=== PATIENT | female | born 1990 | race Caucasian/White ===

== ENCOUNTER 2016-12-03 08:39 | Emergency (ER) | payer OTHER ==
[~2016-12-03] VITALS: Ht 175.3 cm; Wt 68.0 kg
[~2016-12-03 08:39] MED LIST: FIORICET TABLE1 EACH PO; IBUPROFEN400 MG PO; KEFLEX 500MG.500 MG PO; NOMEDS XX; PERCOCET 5/3251 EACH PO; PHENERGAN 25MG.25 MG PR; PRENATAL PLUS1 TA1 PO
--- NOTE | 2016-12-03 08:52 | Emergency Room Report ---
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 N Clinical Suspician of Infection? N Mental Status: 1 - Regular (Normal Baseline) Sepsis Risk:Low Sepsis Risk Have you (or family members/close friends) recently traveled outside the [place]? N If Yes, where/when: Have you had exposure to infectious disease within the past month? TB? Other? Specify: Comment The patient dropped a tool on her LEFT hand at work yesterday, it struck in the region of her second metacarpal head. She has a tiny abrasion but says that today the pain is a lot worse than it looks and she is having trouble moving her hand. No numbness. She says she is currently working for a [employer] service, request a note for missing work today, does not plan on going into work today. ALLERGIES Coded Allergies: Penicillins (12/03/16) Home Medications Reported Medications No Known Home Medications History Medical History General CAD? No Angina: No [place]: No Hypertension? No Hyperlipidemia? No CHF? No DVT? No PE? No COPD? No Asthma? Yes Anemia? No GERD? No Gastric ulcers? No GI Bleed? No Hernia? No Thyroid Problems? No Hypothyroidism? No CVA? No Seizures? No Diabetes? No Renal Insuffiency? No End Stage Renal Disease? No UTI? No Stones? No BPH? No GB Disease: No Nephritic Syndrome? No Asplenia? No Hepatitis? No Sickle Cell Disease? No Arthritis? No Migraines? No Cataracts? No Glaucoma? No MRSA? No HIV? No TB? No Anxiety? No Depression? No Cancer? 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 Cardiovascular normal peripheral pulses Extremities 2 mm abrasion in the region of the second metacarpal head dorsum of LEFT hand. Minimal edema. Reduced range of motion due to pain. No deformity. Neurovascular intact. Neurologic alert, no motor/sensory deficits Mental status normal mood/affect Skin normal color Medical Decision Making LABS/Meds/Orders Pt receiving controlled substance in ED? No Results/Orders Orders Procedure Date/time Status STABILIZE JOINT 12/03 903 Active HAND-LT-3 VIEWS 12/03 848 Active URINE 12/03 848 Complete XRAY/CT/US XRAY/CT/US XRAY hand Comment Interpreted by Rodolfo Ricketts MD. Negative for fracture, dislocation, or foreign body. Departure Departure Disposition DC Home or Self Care(routine) Clinical Impression Primary Impression: Contusion of left hand Qualifiers: Encounter type: initial encounter Qualified Code: S60.222A - Contusion of left hand, initial encounter Condition STABLE Patient Instructions DI for Contusion Additional Instructions Regan wrap for 3 days. Ice and elevate for pain and swelling. Ibuprofen for pain. Off work today, 12/03/16. RIGHT hand work only 12/04/16 and 12/05/16.. Prescriptions Current Visit Scripts No Known Home Medications ED Critical Care Critical Care No at 0906
--- NOTE | 2016-12-03 08:52 | Emergency Room Report ---
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 N Clinical Suspician of Infection? N Mental Status: 1 - Regular (Normal Baseline) Sepsis Risk:Low Sepsis Risk Have you (or family members/close friends) recently traveled outside the [place]? N If Yes, where/when: Have you had exposure to infectious disease within the past month? TB? Other? Specify: Comment The patient dropped a tool on her LEFT hand at work yesterday, it struck in the region of her second metacarpal head. She has a tiny abrasion but says that today the pain is a lot worse than it looks and she is having trouble moving her hand. No numbness. She says she is currently working for a [employer] service, request a note for missing work today, does not plan on going into work today. ALLERGIES Coded Allergies: Penicillins (12/03/16) Home Medications Reported Medications No Known Home Medications History Medical History General CAD? No Angina: No [place]: No Hypertension? No Hyperlipidemia? No CHF? No DVT? No PE? No COPD? No Asthma? Yes Anemia? No GERD? No Gastric ulcers? No GI Bleed? No Hernia? No Thyroid Problems? No Hypothyroidism? No CVA? No Seizures? No Diabetes? No Renal Insuffiency? No End Stage Renal Disease? No UTI? No Stones? No BPH? No GB Disease: No Nephritic Syndrome? No Asplenia? No Hepatitis? No Sickle Cell Disease? No Arthritis? No Migraines? No Cataracts? No Glaucoma? No MRSA? No HIV? No TB? No Anxiety? No Depression? No Cancer? 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 Cardiovascular normal peripheral pulses Extremities 2 mm abrasion in the region of the second metacarpal head dorsum of LEFT hand. Minimal edema. Reduced range of motion due to pain. No deformity. Neurovascular intact. Neurologic alert, no motor/sensory deficits Mental status normal mood/affect Skin normal color Medical Decision Making LABS/Meds/Orders Pt receiving controlled substance in ED? No Results/Orders Orders Procedure Date/time Status STABILIZE JOINT 12/03 903 Active HAND-LT-3 VIEWS 12/03 848 Active URINE 12/03 848 Complete XRAY/CT/US XRAY/CT/US XRAY hand Comment Interpreted by Rodolfo Ricketts MD. Negative for fracture, dislocation, or foreign body. Departure Departure Disposition DC Home or Self Care(routine) Clinical Impression Primary Impression: Contusion of left hand Qualifiers: Encounter type: initial encounter Qualified Code: S60.222A - Contusion of left hand, initial encounter Condition STABLE Patient Instructions DI for Contusion Additional Instructions Regan wrap for 3 days. Ice and elevate for pain and swelling. Ibuprofen for pain. Off work today, 12/03/16. RIGHT hand work only 12/04/16 and 12/05/16.. Prescriptions Current Visit Scripts No Known Home Medications ED Critical Care Critical Care No at 0906
[2016-12-03 09:24] VITALS: BP 130/98
--- NOTE | 2016-12-03 09:28 | RADIOLOGY REPORT PS360 ---
HAND-LT-3 VIEWS HISTORY: Posttraumatic pain DROPPED TOOL GUN ON HAND COMPARISON: None FINDINGS: No fracture or dislocation. No lytic or blastic change. There is normal mineralization. The joint spaces are well-preserved. No significant degenerative/arthritic changes. No erosive changes evident. IMPRESSION: Negative, no acute finding
== END 2016-12-03 09:25 | disposition home or self-care (01) ==
LOC: ER 08:39
DX: S60.222A Contusion of left hand, initial encounter (principal); W22.8XXA Striking against or struck by other objects, initial encounter; Y92.63 Factory as the place of occurrence of the external cause; Y99.0 Civilian activity done for income or pay; Z72.0 Tobacco use

== ENCOUNTER 2017-03-27 19:08 | Emergency (ER) | payer SELFPAY ==
[~2017-03-27] VITALS: Ht 175.3 cm; Wt 70.3 kg
[2017-03-27 19:25] LABS: URINE BILIRUBIN - DIPSTICK NEGATIVE (NEG); URINE BLOOD NEGATIVE (NEG)
[2017-03-27] MEDS ORDERED: DIFLUCAN150 MG PO (19:58)
[2017-03-27] MEDS ORDERED: FLAGYL500 M1 PO (19:58)
--- NOTE | 2017-03-27 20:04 | Urgent Treatment Center Report ---
History of Present Issue Date/Time Seen by Provider 03/27/171925 Visit Reason Pt arrived:Walked Presenting Problem:PT STATES VAGINAL DISCHARGE FOR PAST THREE TO FOUR DAYS. DENIES ITCHING OR BURNING. DENIES ANY USE OF NEW/DIFFERENT CONDOMS OR LUBRICANT DURING INTERCOURSE Location if Accident: Onset of symptoms date/time:/ or onset unknown for:MEDICAL HX UNKNOWN Have you (or family members/close friends) recently traveled outside the [place]? N If Yes, where/when: Have you had exposure to infectious disease within the past month? TB? Other? Specify: Patient states that she recently had unprotected sex about 3-4 days States that she has noticed that she has a excessive vaginal discharge that is whitish yellow in color. States that she thinks she may have been exposed to an STD. States that she also noted a strong odor from the discharge at times and some irritation around vaginal opening. ALLERGIES Coded Allergies: Penicillins (12/03/16) Home Medications Reported Medications No Known Home Medications History Medical History General CAD? No Angina: No [place]: No Hypertension? No Hyperlipidemia? No CHF? No DVT? No PE? No COPD? No Asthma? Yes Anemia? No GERD? No Gastric ulcers? No GI Bleed? No Hernia? No Thyroid Problems? No Hypothyroidism? No CVA? No Seizures? No Diabetes? No Renal Insuffiency? No UTI? No Stones? No BPH? No GB Disease: No Nephritic Syndrome? No Asplenia? No Hepatitis? No Sickle Cell Disease? No Arthritis? No Migraines? No Cataracts? No Glaucoma? No MRSA? No HIV? No TB? No Anxiety? No Depression? No Cancer? 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 States that afterwards she began to have discharge from her vagina that was whitish yellow in color and irritation around vaginal opening with strong odor from discharge at times. States that male at high risk to have STD so she came in to get treated to be safe Physical Exam Vital Signs Vital Signs Date Time Temp Pulse Resp B/P Pulse O2 O2 Flow FiO2 Ox Delivery Rate 03/27 1914 98.8 93 18 130/80 96 General Appearance normal appearance, WD/WN, no apparent distress Respiratory Status Yes: trachea midline, chest symmetrical, non tender chest. No: respiratory distress. 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 Also patient complains of strong odor from discharge described as that seen with Bacterial Vaginosis. Medical Decision Making LABS/Meds/Orders Pt receiving controlled substance in ED? No Results/Orders Laboratory Tests 03/27/171910: Urine Color YELLOW, Urine Appearance Clear, Urine pH 7.0, Ur Specific [place] 1.015, Urine Protein NEGATIVE, Urine Ketones NEGATIVE, Urine Blood NEGATIVE, Urine Nitrate NEGATIVE, Urine Bilirubin NEGATIVE, Urine Urobilinogen 1.0, Ur Leukocyte Esterase NEGATIVE, Urine Glucose NEGATIVE Current Medication Orders Sig/Maximo Start time Last Medication Dose Route Stop Time Status Admin Ceftriaxone Sodium 0 .STK-MED ONE 03/27 1947 DCr .ROUTE Lidocaine HCl 0 .STK-MED ONE 03/27 1947 DC IJ Azithromycin 0 .STK-MED ONE 03/27 1946 DC PO Azithromycin 1,000 MG ONCE ONE 03/27 1945 DC / PO 03/27 Ceftriaxone Sodium 250 MG ONCE ONE 03/27 1945 DCr 03/27 IM 03/27 Lidocaine HCl 0.9 ML ONCE ONE 03/27 1945 DC 03/27 IM 03/27 Orders Procedure Date/time Status [facility] URINE DIPSTICK 03/27 1911 Complete Progress [facility] Progress Notes Date 03/27/17 Time 1951 Comment Patient declined pelvic exam and STD testing and instead wanted to receive medication treatment for Chlamydia and Gonorrhea with Rocephin and Azithromycin due to recent high risk exposure. Departure Departure Time of Disposition 1952 Disposition DC Home or Self Care(routine) Clinical Impression Primary Impression: BV (bacterial vaginosis) Condition STABLE Referrals Joey LUND,Albert Toussaint MD,[place]ipak El Patient Instructions Bacterial Vaginosis, DI for Bacterial Vaginosis, DI for Vaginal Yeast Infection Additional Instructions Keep area clean and dry No sexual activity for at least one week or cleared by OBGYN Practice safe sex Wear cotton underwear and refrain from douching, bubble baths, tampons, or sexual encounter until all medication completed FOllow up with OBGYN or family doctor if symptoms do not improve or persist Return if needed Discharge Counseling Counseled pt/family regarding diagnosis, medications/RX, home care, follow up needs Prescriptions Current Visit Scripts Metronidazole (Flagyl) 500 MG PO BID #14 TAB Fluconazole (Diflucan 150MG) 150 MG PO ONCE #1 TAB at 2004
--- NOTE | 2017-03-27 20:04 | Urgent Treatment Center Report ---
History of Present Issue Date/Time Seen by Provider 03/27/171925 Visit Reason Pt arrived:Walked Presenting Problem:PT STATES VAGINAL DISCHARGE FOR PAST THREE TO FOUR DAYS. DENIES ITCHING OR BURNING. DENIES ANY USE OF NEW/DIFFERENT CONDOMS OR LUBRICANT DURING INTERCOURSE Location if Accident: Onset of symptoms date/time:/ or onset unknown for:MEDICAL HX UNKNOWN Have you (or family members/close friends) recently traveled outside the [place]? N If Yes, where/when: Have you had exposure to infectious disease within the past month? TB? Other? Specify: Patient states that she recently had unprotected sex about 3-4 days States that she has noticed that she has a excessive vaginal discharge that is whitish yellow in color. States that she thinks she may have been exposed to an STD. States that she also noted a strong odor from the discharge at times and some irritation around vaginal opening. ALLERGIES Coded Allergies: Penicillins (12/03/16) Home Medications Reported Medications No Known Home Medications History Medical History General CAD? No Angina: No [place]: No Hypertension? No Hyperlipidemia? No CHF? No DVT? No PE? No COPD? No Asthma? Yes Anemia? No GERD? No Gastric ulcers? No GI Bleed? No Hernia? No Thyroid Problems? No Hypothyroidism? No CVA? No Seizures? No Diabetes? No Renal Insuffiency? No UTI? No Stones? No BPH? No GB Disease: No Nephritic Syndrome? No Asplenia? No Hepatitis? No Sickle Cell Disease? No Arthritis? No Migraines? No Cataracts? No Glaucoma? No MRSA? No HIV? No TB? No Anxiety? No Depression? No Cancer? 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 States that afterwards she began to have discharge from her vagina that was whitish yellow in color and irritation around vaginal opening with strong odor from discharge at times. States that male at high risk to have STD so she came in to get treated to be safe Physical Exam Vital Signs Vital Signs Date Time Temp Pulse Resp B/P Pulse O2 O2 Flow FiO2 Ox Delivery Rate 03/27 1914 98.8 93 18 130/80 96 General Appearance normal appearance, WD/WN, no apparent distress Respiratory Status Yes: trachea midline, chest symmetrical, non tender chest. No: respiratory distress. 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 Also patient complains of strong odor from discharge described as that seen with Bacterial Vaginosis. Medical Decision Making LABS/Meds/Orders Pt receiving controlled substance in ED? No Results/Orders Laboratory Tests 03/27/171910: Urine Color YELLOW, Urine Appearance Clear, Urine pH 7.0, Ur Specific [place] 1.015, Urine Protein NEGATIVE, Urine Ketones NEGATIVE, Urine Blood NEGATIVE, Urine Nitrate NEGATIVE, Urine Bilirubin NEGATIVE, Urine Urobilinogen 1.0, Ur Leukocyte Esterase NEGATIVE, Urine Glucose NEGATIVE Current Medication Orders Sig/Maximo Start time Last Medication Dose Route Stop Time Status Admin Ceftriaxone Sodium 0 .STK-MED ONE 03/27 1947 DCr .ROUTE Lidocaine HCl 0 .STK-MED ONE 03/27 1947 DC IJ Azithromycin 0 .STK-MED ONE 03/27 1946 DC PO Azithromycin 1,000 MG ONCE ONE 03/27 1945 DC / PO 03/27 Ceftriaxone Sodium 250 MG ONCE ONE 03/27 1945 DCr 03/27 IM 03/27 Lidocaine HCl 0.9 ML ONCE ONE 03/27 1945 DC 03/27 IM 03/27 Orders Procedure Date/time Status [facility] URINE DIPSTICK 03/27 1911 Complete Progress [facility] Progress Notes Date 03/27/17 Time 1951 Comment Patient declined pelvic exam and STD testing and instead wanted to receive medication treatment for Chlamydia and Gonorrhea with Rocephin and Azithromycin due to recent high risk exposure. Departure Departure Time of Disposition 1952 Disposition DC Home or Self Care(routine) Clinical Impression Primary Impression: BV (bacterial vaginosis) Condition STABLE Referrals Joey LUND,Albert Toussaint MD,[facility] [place] Patient Instructions Bacterial Vaginosis, DI for Bacterial Vaginosis, DI for Vaginal Yeast Infection Additional Instructions Keep area clean and dry No sexual activity for at least one week or cleared by OBGYN Practice safe sex Wear cotton underwear and refrain from douching, bubble baths, tampons, or sexual encounter until all medication completed FOllow up with OBGYN or family doctor if symptoms do not improve or persist Return if needed Discharge Counseling Counseled pt/family regarding diagnosis, medications/RX, home care, follow up needs Prescriptions Current Visit Scripts Metronidazole (Flagyl) 500 MG PO BID #14 TAB Fluconazole (Diflucan 150MG) 150 MG PO ONCE #1 TAB at 2004
[2017-03-27 20:11] VITALS: BP 130/80
== END 2017-03-27 20:11 | disposition home or self-care (01) ==
LOC: UTC 19:08
PROVIDERS: Nurse Practitioner
DX: N76.0 Acute vaginitis (principal)

== ENCOUNTER 2017-07-30 16:16 | Emergency (ER) | payer MEDICAID ==
[~2017-07-30] VITALS: Ht 175.3 cm; Wt 68.0 kg
[~2017-07-30 16:16] MED LIST changes: +DIFLUCAN150 MG PO; +FLAGYL500 M1 PO; +NAPROXEN SODIU500 MG PO
[2017-07-30] MEDS ORDERED: PROMETHAZINE D118 ML PO (16:59)
[2017-07-30] MEDS ORDERED: MEDROL 4MG. DOSE4 MG PO (16:59)
[2017-07-30] MEDS ORDERED: ZITHROMAX Z PA250 MG PO (16:59)
[2017-07-30] MEDS ORDERED: PROVENTIL0.09 MG/A1 IH (16:59)
--- NOTE | 2017-07-30 16:59 | Urgent Treatment Center Report ---
History of Present Issue Date/Time Seen by Provider 07/30/17 1642 Visit Reason Pt arrived:Walked Presenting Problem:PT STATES CHEST CONGESTION, NAUSEA AND SINUS DRAINAGE FOR THREE DAYS Location if Accident: Onset of symptoms date/time:/ or onset unknown for:MEDICAL HX UNKNOWN Have you (or family members/close friends) recently traveled outside the [place]? N If Yes, where/when: Have you had exposure to infectious disease within the past month? TB? Other? Specify: c/o chest congestion and prod cough w/ yellow sputum that started as sore throat and rhinorrhea 3 days ago. Cough and chest congestion worse today. Hasn't taken or tried anything for symptoms. No known sick contacts. + tobacco user. No fever , aches, chills. Source patient Exam Limitations no limitations ALLERGIES Coded Allergies: Penicillins (12/03/16) History Medical History General CAD? No Angina: No [place]: No Hypertension? No Hyperlipidemia? No CHF? No DVT? No PE? No COPD? No Asthma? Yes Anemia? No GERD? No Gastric ulcers? No GI Bleed? No Hernia? No Thyroid Problems? No Hypothyroidism? No CVA? No Seizures? No Diabetes? No Renal Insuffiency? No UTI? No Stones? No BPH? No GB Disease: No Nephritic Syndrome? No Asplenia? No Hepatitis? No Sickle Cell Disease? No Arthritis? No Migraines? No Cataracts? No Glaucoma? No MRSA? No HIV? No TB? No Anxiety? No Depression? No Cancer? No More? 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 denies: ear pain, throat pain ( resolved). Respiratory see HPI, shortness of breath (mild, w/ exertion), wheezing (faint, "at times") Cardiovascular denies chest pain, denies palpitations Gastrointestinal denies no symptoms reported Skin denies rash Psychiatric/Neurological denies headache Physical Exam Vital Signs Vital Signs Date Time Temp Pulse Resp B/P Pulse O2 O2 Flow FiO2 Ox Delivery Rate 07/30 1704 97.8 89 20 111/62 97 07/30 1626 97.8 89 20 97 General Appearance normal appearance, no apparent distress Eye Exam - bilateral eye normal exam Ear, Nose, Throat normal ENT inspection (x/ mild nasal congestion) Neck non-tender, supple Respiratory Status Yes: trachea midline, chest symmetrical, non tender chest, non productive cough (worse w/ deep breaths). No: respiratory distress, use of accessory muscles, pain on inspiration, pain on expiration. Lung Sounds left: wheezing (faint expiratory). right: lungs clear. Cardiovascular regular rate/rhythm, no peripheral edema, no murmur Neurologic alert, oriented x 3 Mental status normal mood/affect Skin normal color, warm/dry Lymphatic no adenopathy Medical Decision Making LABS/Meds/Orders Pt receiving controlled substance in ED? No Departure Departure Time of Disposition 1650 Disposition DC Home or Self Care(routine) Clinical Impression Primary Impression: Acute bronchitis Qualifiers: Bronchitis organism: unspecified organism Qualified Code: J20.9 - Acute bronchitis, unspecified Secondary Impressions: Tobacco abuse Condition STABLE Referrals NO REFERRAL Primary care provider or return to [facility] [[email or web address] IMMEDIATELY for new or worsening symptoms OR no noticeable improvement over the next 48-72 hours. 911 for difficulty breathing or swallowing. Patient Instructions DI for Acute Bronchitis, How to Quit Tobacco Products Additional Instructions * Bronchitis is typically viral but given your worsening symptoms and the fact that you smoke, I have prescribed an antibiotic today. * Monitor Temp. FU if fevers develop * start antibiotic today. Be sure to complete entire prescription even if feeling better. * humidifier/vaporizer/hot steamy shower * Inhaler every 4-6 hours as needed like we discussed. If unsure how to use it, ask pharmacist to demonstrate how. Should help open airways and improve cough, wheezing, shortness of breath. * Mucinex during the day for your cough and cough suppressant only at night. Be sure to drink lots of water. Insurance may not cover a prescription of mucinex. Might be cheaper to get 400mg tablets and take 2 tablets morning, midday and evening all with lots of water. * Promethazine DM cough syrup will cause drowsiness. Use it only at night. No driving, operating machinery or caring for small children after taking it. * Start steroid today. Helps with inflammation therefore, cough and wheezing. Follow directions on package. Rvwd side effects. Pt reports they have taken them before. Discharge Counseling Counseled pt/family regarding diagnosis, medications/RX, home care, follow up needs Prescriptions Current Visit Scripts ALBUTEROL (Proventil Hfa Inhaler) 1-2 PUFF IH Q4-6H PRN PRN SOA, wheezing #1 CAN Azithromycin (Zithromycin (Z-ESTELLA) 250MG Tab) 250 MG PO DAILY #6 TAB TAKE TWO (2) TABLETS ON DAY 1, THEN ONE (1) TABLET DAY #2 THRU #5 Methylprednisolone (Medrol Dose Estella) 4 MG PO UD #1 ESTELLA TAKE DIRECTED ON PACKAGING PROMETHAZINE/DEXTROMETHORPHAN (Promethazine-Dm Syrup) 5-10 ML PO QHSP PRN cough #120 ML will cause drowsiness at 4262
[2017-07-30 17:04] VITALS: BP 111/62
== END 2017-07-30 17:05 | disposition home or self-care (01) ==
LOC: UTC 16:16
DX: J20.9 Acute bronchitis, unspecified (principal); Z72.0 Tobacco use